=== PATIENT | female | born 1955 | race Caucasian/White ===

== ENCOUNTER → 2016-11-15 | Outpatient (CLI) | payer OTHER ==
--- NOTE | 2016-11-15 12:29 | US ---
Bilateral Duplex Carotid Sonography Clinical Indications: [ ] Technique: The cervical portions of the carotid and vertebral arteries were imaged and interrogated by color and pulsed Doppler. Spectral analysis was performed. Findings: Right Carotid: The common carotid artery, bifurcation, and origin of the internal and external carot id artery are well imaged. No significant plaque is identified. Doppler velocity estimates and color Doppler spectra are normal. No evidence of flow-limiting stenosis. No focal plaque identified. Left Carotid: The common carotid artery, bifurcation, and origin of the internal and external caroti d artery are well imaged. No significant plaque is identified. Doppler velocity estimates and color Doppler spectra are normal. No evidence of flow-limiting stenosis. No focal plaque identified. The re is a single minimal echogenic calcified plaque left carotid bulb. Vertebral Arteries: Antegrade flow is shown by pulsed Doppler of each vertebral artery. Impression: No evidence of flow-limiting carotid stenosis. Minimal calcified plaque left carotid bul b without consequences. Measurement of carotid stenosis is based on velocity parameters that correlate the residual internal carotid diameter with [place] Symptomatic Carotid Endarterectomy Trial (NASCET) based stenosis levels.
== END ==
LOC: BMCIMAGING 10:56
PROVIDERS: ATTEND Family Medicine
DX: R93.8 Abnormal findings on diagnostic imaging of other specified body structures (principal)

== ENCOUNTER → 2017-11-26 | Outpatient (CLI) | payer OTHER | LOC: FIMAGING 13:44 | PROVIDERS: ATTEND Family Medicine | DX: N63.10 Unspecified lump in the right breast, unspecified quadrant (principal) ==

== ENCOUNTER → 2017-12-09 | Outpatient (CLI) | payer OTHER | LOC: FIMAGING 11:21 | PROVIDERS: ATTEND Surgery | DX: C50.211 Malignant neoplasm of upper-inner quadrant of right female breast (principal) | CPT/HCPCS: 0159T; 77059; C8908 ==

== ENCOUNTER → 2018-10-22 | Outpatient (CLI) | payer OTHER | LOC: BMCIMAGING 11:05 | PROVIDERS: ATTEND Emergency Medicine | DX: Z03.89 Encounter for observation for other suspected diseases and conditions ruled out (principal) ==